=== PATIENT | female | born 1950 | race Caucasian/White ===

== ENCOUNTER → 2023-12-14 07:27 | Outpatient (REF) | payer MEDICARE, OTHER, SELFPAY | LOC: HWRAD 07:27 | PROVIDERS: ATTENDING PHYSICIAN Nurse Practitioner | DX: M25.562 Pain in left knee (principal) | CPT/HCPCS: 73564 ==

== ENCOUNTER → 2023-12-30 06:20 | Outpatient (REF) | payer MEDICARE, OTHER, SELFPAY ==
[2023-12-30 09:15] LABS: % Basophils 1.3 % (0-2); % Eosinophils 4.5 % (0-6); % Immature Granulocytes 0.2 % (0-0.5); % Lymphocytes 24.5 % (20.5-51.1); % Monocytes 7.4 % (1.7-9.3); % Neutrophils 62.1 % (42.2-75.2); Absolute Basophils 0.1 10^3/uL (0-0.2); Absolute Eosinophils 0.2 10^3/uL (0-0.7); Absolute Lymphocytes 1.1 10^3/uL (1.2-3.4); Absolute Monocytes 0.3 10^3/uL (0.1-0.6); Absolute Neutrophils 2.9 10^3/uL (1.4-6.5); Hematocrit 41.3 % (37.0-47.0); Hemoglobin 14.1 g/dL (12.0-16.0); Mean Corp Hgb Conc. 34.1 g/dL (33.0-37.0); Mean Corpuscular Hgb 30.8 pg (27.0-31.0); Mean Corpuscular Volume 90.2 fL (81.0-99.0); Mean Platelet Volume 9.6 fL (7.4-10.4); Nucleated Red Blood Cells % 0 %; Platelet Count 292 10^3/uL (130-400); Red Blood Cell Count 4.58 10^6/uL (4.20-5.40); White Blood Cell Count 4.6 10^3/uL (4.8-10.8)
[2023-12-30 09:56] LABS: Blood Urea Nitrogen 36 mg/dl (7-17); Calcium 9.8 mg/dl (8.4-10.2); Carbon Dioxide 27 mmol/L (22-30); Chloride 103 mmol/L (98-107); Glucose 118 mg/dl (70-99); Potassium 4.8 mmol/L (3.5-5.1); Sodium 137 mmol/L (135-145); eGFR > 60.00
== END ==
LOC: HWLAB 06:20
PROVIDERS: ATTENDING PHYSICIAN Orthopaedic Surgery; FAMILY PHYSICIAN Internal Medicine
DX: Z01.818 Encounter for other preprocedural examination (principal)
CPT/HCPCS: 36415; 80048; 85025; 93005

== ENCOUNTER → 2024-01-04 06:06 | Outpatient (REF) | payer MEDICARE, OTHER, SELFPAY ==
[2024-01-04 09:43] LABS: % Eosinophils 2.7 % (0-6); % Immature Granulocytes 0.7 % (0-0.5); % Lymphocytes 30.4 % (20.5-51.1); % Monocytes 6.9 % (1.7-9.3); % Neutrophils 58.3 % (42.2-75.2); Absolute Eosinophils 0.1 10^3/uL (0-0.7); Absolute Lymphocytes 1.2 10^3/uL (1.2-3.4); Absolute Monocytes 0.3 10^3/uL (0.1-0.6); Absolute Neutrophils 2.4 10^3/uL (1.4-6.5); Hematocrit 42.1 % (37.0-47.0); Hemoglobin 14.4 g/dL (12.0-16.0); Mean Corp Hgb Conc. 34.2 g/dL (33.0-37.0); Mean Corpuscular Hgb 31.1 pg (27.0-31.0); Mean Corpuscular Volume 90.9 fL (81.0-99.0); Mean Platelet Volume 9.9 fL (7.4-10.4); Nucleated Red Blood Cells % 0 %; Platelet Count 277 10^3/uL (130-400); Red Blood Cell Count 4.63 10^6/uL (4.20-5.40); Red Cell Dist. Width 12.9 % (11.5-14.5); White Blood Cell Count 4.1 10^3/uL (4.8-10.8)
[2024-01-04 10:00] LABS: ALT (SGPT) 19 U/L (0-35); AST (SGOT) 26 U/L (14-36); Albumin 4.8 g/dl (3.5-5.0); Alkaline Phosphatase 85 U/L (38-126); Blood Urea Nitrogen 25 mg/dl (7-17); Calcium 10.1 mg/dl (8.4-10.2); Carbon Dioxide 28 mmol/L (22-30); Chloride 102 mmol/L (98-107); Glucose 116 mg/dl (70-99); HDL Cholesterol 97 mg/dl; LDL Cholesterol, Calculated 78 mg/dl; Potassium 4.6 mmol/L (3.5-5.1); Sodium 137 mmol/L (135-145); Total Bilirubin 0.9 mg/dl (0.2-1.3); Total Cholesterol 188 mg/dl (50-199); Total Protein 7.2 g/dl (6.3-8.2); Triglyceride 65 mg/dl (10-149); Very Low Density Lipoprotein 13 mg/dl (0-30); eGFR > 60.00
[2024-01-04 10:27] LABS: TSH 2.15 uIU/ml (0.47-4.68)
[2024-01-04 10:44] LABS: Glycohemoglobin (HgbA1c) 5.8 % (4.0-5.6)
== END ==
LOC: HWLAB 06:06
PROVIDERS: ATTENDING PHYSICIAN Internal Medicine
DX: Z00.00 Encounter for general adult medical examination without abnormal findings (principal); E78.5 Hyperlipidemia, unspecified; R79.89 Other specified abnormal findings of blood chemistry; R53.83 Other fatigue
CPT/HCPCS: 36415; 80053; 80061; 83036; 84443; 85025

== ENCOUNTER 2024-08-07 11:45 | Emergency (ER) | payer MEDICARE, OTHER, SELFPAY ==
[2024-08-07 11:47] VITALS: BP 114/79
[2024-08-07 12:25] LABS: COVID-19 Antigen Negative (Negative)
[2024-08-07 12:49] VITALS: BMI 20.2
[2024-08-07] MEDS: DUONEB 3 ML INH (13:30)
[2024-08-07 13:44] LABS: ALT (SGPT) 86 U/L (0-35); AST (SGOT) 90 U/L (14-36); Albumin 4.1 g/dl (3.5-5.0); Alkaline Phosphatase 75 U/L (38-126); Blood Urea Nitrogen 17 mg/dl (7-17); Calcium 9.3 mg/dl (8.4-10.2); Carbon Dioxide 28 mmol/L (22-30); Chloride 101 mmol/L (98-107); Estimated Creatinine Clearance 62 ml/min; Glucose 103 mg/dl (70-99); Potassium 4.6 mmol/L (3.5-5.1); Sodium 137 mmol/L (135-145); Total Bilirubin 0.6 mg/dl (0.2-1.3); Total Protein 6.7 g/dl (6.3-8.2); eGFR > 60.00
[2024-08-07 13:48] LABS: % Basophils 0.4 % (0-2); % Immature Granulocytes 0.4 % (0-0.5); % Lymphocytes 31.3 % (20.5-51.1); % Neutrophils 54.9 % (42.2-75.2); Absolute Lymphocytes 0.7 10^3/uL (1.2-3.4); Absolute Monocytes 0.3 10^3/uL (0.1-0.6); Absolute Neutrophils 1.3 10^3/uL (1.4-6.5); Hematocrit 40.4 % (37.0-47.0); Hemoglobin 13.9 g/dL (12.0-16.0); Mean Corp Hgb Conc. 34.4 g/dL (33.0-37.0); Mean Corpuscular Hgb 30.8 pg (27.0-31.0); Mean Corpuscular Volume 89.6 fL (81.0-99.0); Mean Platelet Volume 9.2 fL (7.4-10.4); Nucleated Red Blood Cells % 0 %; Platelet Count 215 10^3/uL (130-400); Red Blood Cell Count 4.51 10^6/uL (4.20-5.40); Red Cell Dist. Width 13.5 % (11.5-14.5); White Blood Cell Count 2.3 10^3/uL (4.8-10.8)
--- NOTE | 2024-08-07 14:04 | ED.GENMED ---
History of Present Illness
General
Chief Complaint: Medication Reaction
Source: patient
Exam Limitations: none
Time Seen by Provider: 08/07/24 12:27
Nursing documentation reviewed up to this point in time: agreed with
History of Present Illness
History of Present Illness:
73-year-old female with past medical history of IBS, thyroid disorder, GERD presenting to the emergency department today with concerns of vague chills sweats over the past week or so has had a mild cough nasal congestion. Thought this could be a
reaction from Lexapro. Denies any chest pain significant shortness of breath but has had ongoing cough over the past week.
Past History
Past History
ED Past Medical History: HTN and Other
ED Past Surgical History: Cholecystectomy and Other
Social History
Tobacco: Non-smoker
Personal:
Living: with family
Employment: Retired
Review of Systems
Review of Systems
Allergies reviewed?: Yes
All Other Systems: ROS reviewed and negative except as documented in HPI and ROS
Phy Exam
Physical Exam
Physical Exam:
GENERAL: Alert , in no apparent distress
EYE: pupils equal and reactive
NECK: Supple, no significant adenopathy.
ENT: o/p clr, mmm.
CARDIAC: Regular rate and rhythm .
LUNGS: Clear breath sounds bilaterally, no acute respiratory distress, no wheezes/rales/rhonchi
ABDOMEN: Soft, without focal tenderness, no r/g, no cvat
NEUROLOGICAL: Alert and oriented, no focal neuro deficits
SKIN: Warm and dry, skin intact.
MUSCULOSKELETAL: No edema, well perfused.
PSYCH: Normal and appropriate interaction.
Course
Orders/Labs/Results
Orders:
Orders
08/07/24 11:59
COVID-19 Antigen Urgent
Source: Nasal Swab
Influenza A+B Rapid Molecular Urgent
SUSAN Source: Nasal Swab
Specimen Description:
08/07/24 12:46
Ipratropium/Albuterol Sulfate [Duoneb] 3 ml INH R NOW ONE
Chest [CR Chest - 2 Views ] Urgent
Comment:
Reason For Exam: cough fever RLL
08/07/24 13:03
CBC/With Diff [Complete Blood Count/With Diff] Urgent
CMP [Comprehensive Metabolic Panel] Urgent
Abnormal Lab Results
08/07/24
13:03
WBC 2.3 L* 10^3/uL
(4.8-10.8)
Absolute Neuts (auto) 1.3 L 10^3/uL
(1.4-6.5)
Absolute Lymphs (auto) 0.7 L 10^3/uL
(1.2-3.4)
Monocytes % 13.0 H %
(1.7-9.3)
Glucose 103 H mg/dl
(70-99)
AST 90 H U/L
(14-36)
ALT 86 H U/L
(0-35)
08/07/24 13:03
08/07/24 13:03
Vital Signs
Initial and Last Documented VS:
Initial Vital Signs
Temp Pulse Resp BP Pulse Ox
98.1 F 79 17 114/79 98
08/07/24 11:47 08/07/24 11:47 08/07/24 11:47 08/07/24 11:47 08/07/24 11:47
Last Documented Vital Signs
Temp Pulse Resp BP Pulse Ox
98.1 F 77 17 133/79 97
08/07/24 11:47 08/07/24 14:37 08/07/24 11:47 08/07/24 14:37 08/07/24 14:37
MDM/Problems Addressed
MDM/Problems Addressed:
73-year-old female presenting to the emergency department today with concerns of vague symptoms over the past week. Has had some upper respiratory symptoms and sweats. On arrival here vital signs are normal patient no distress patient did test
positive for the flu which certainly could explain her symptoms. Otherwise here patient was found have a low white count of 2.3 likely due to the viral illness is relatively low at baseline. Slight elevation of liver function test as well.
Advised for outpatient follow-up of this. X-ray was read from radiology without obvious consolidation though there is some adventitious sounds of the right lower lobe. Patient started on antibiotic consistent with the lung findings and will
follow-up closely with the primary care doctor.
*Critical Care Note
Total Time (30-74mins, 75-104mins- exclusive of procedures): Not Applicable
ED Attending Note
-
Portions of this chart may have been created with voice recognition software.� Occasional wrong word or��sound alike� substitutions may have occurred due to the inherent limitations of voice recognition software.
Discharge Plan
Departure
Patient Disposition: Home (Routine Discharge)
Date of Disposition: 08/07/24
Time of Disposition: 15:31
Patient with high blood pressure during this ER visit?: No
Condition: Good
Covid-19: Not Applicable
Discharge Problem:
Pneumonia, Influenza
Instructions: Flu
Prescriptions:
New
amoxicillin-pot clavulanate 875-125 mg tablet
1 tab PO BID 7 Days Qty: 14 0RF
No Action
esomeprazole magnesium [Nexium] 40 MG capsule,delayed release(DR/EC)
40 mg PO DAILY
escitalopram oxalate 20 MG tablet
20 mg PO DAILY
CO Q-10
PO DAILY
methylcellulose (laxative) [Citrucel] 500 MG tablet
500 mg PO DAILY
ap-yce-EO-No-Dn-hytijiu-lutein 1 EACH tablet
1 ea PO DAILY
Fish Oil 1,000 mg Softgel
DAILY
Referrals:
Andrew Mendoza MD [Active] - Follow up in 5-7 days
Mercedes Hernandez MD [Family Provider] -
Activity Restrictions/Additional Instructions:
You came to the emergency department today with concerns of symptoms consistent with the flu. He also may have a secondary pneumonia. Please take the prescribed antibiotic return for any worsening, new or concerning symptoms.
Interventions
Interventions:
*Risk Screen - Suicide Last Done: 08/07/24 11:50
*General Assessment Last Done: 08/07/24 11:50
*Neglect/Abuse Screening Last Done: 08/07/24 11:50
*ED COVID-19 Vaccine History Last Done: 08/07/24 11:50
ED-Skin Assessment Last Done: 08/07/24 13:12
ED- Pulmonary Assessment Last Done: 08/07/24 13:12
ED-EENT Assessment Last Done: 08/07/24 13:12
Discharge Date and Time
Print Language: ROMANIAN
[2024-08-07 14:37] VITALS: BP 133/79
[2024-08-07] MEDS: AUGMENTIN 875 MG/125 MG 1 TABLET PO (15:42)
== END 2024-08-07 16:05 | disposition home or self-care (01) ==
LOC: EMR 11:45
PROVIDERS: Physician Assistant; EMERGENCY PHYSICIAN Emergency Medicine; FAMILY PHYSICIAN Internal Medicine
DX: J10.00 Influenza due to other identified influenza virus with unspecified type of pneumonia (principal); I10 Essential (primary) hypertension; Z11.52 Encounter for screening for COVID-19; Z90.49 Acquired absence of other specified parts of digestive tract
CPT/HCPCS: 94640; 99284; 71046; 80053; 85025; 87502; 87811

== ENCOUNTER → 2024-12-27 06:10 | Outpatient (REF) | payer MEDICARE, OTHER, SELFPAY ==
[2024-12-27 10:00] LABS: Hematocrit 42.8 % (37.0-47.0); Hemoglobin 14.1 g/dL (12.0-16.0); Mean Corp Hgb Conc. 32.9 g/dL (33.0-37.0); Mean Corpuscular Volume 92.6 fL (81.0-99.0); Nucleated Red Blood Cells % 0 %; Platelet Count 260 10^3/uL (130-400); Red Cell Dist. Width 12.9 % (11.5-14.5)
[2024-12-27 11:07] LABS: ALT (SGPT) 22 U/L (0-35); AST (SGOT) 24 U/L (14-36); Albumin 4.7 g/dl (3.5-5.0); Alkaline Phosphatase 74 U/L (38-126); Blood Urea Nitrogen 18 mg/dl (7-17); Calcium 9.8 mg/dl (8.4-10.2); Carbon Dioxide 28 mmol/L (22-30); Chloride 105 mmol/L (98-107); Glucose 126 mg/dl (70-99); HDL Cholesterol 81 mg/dl; LDL Cholesterol, Calculated 100 mg/dl; Potassium 4.3 mmol/L (3.5-5.1); Sodium 141 mmol/L (135-145); Total Protein 7.2 g/dl (6.3-8.2); Very Low Density Lipoprotein 11 mg/dl (0-30); eGFR > 60.00
[2024-12-27 11:31] LABS: Glycohemoglobin (HgbA1c) 5.7 % (4.0-5.6)
[2024-12-27 12:03] LABS: Free T3 3.71 pg/ml (2.77-5.27)
[2024-12-27 12:16] LABS: TSH 1.10 uIU/ml (0.47-4.68)
== END ==
LOC: HWLAB 06:10
PROVIDERS: ATTENDING PHYSICIAN Nurse Practitioner
DX: R68.89 Other general symptoms and signs (principal); E86.0 Dehydration; K58.0 Irritable bowel syndrome with diarrhea; E78.5 Hyperlipidemia, unspecified; R73.01 Impaired fasting glucose
CPT/HCPCS: 36415; 80053; 80061; 83036; 84436; 84439; 84443; 84481; 85025